=== PATIENT | female | born 1945 | race Caucasian/White ===

== ENCOUNTER 2017-02-10 18:45 | Emergency (ER) | payer MEDICARE, BC ==
[2017-02-10 19:09] VITALS: TEMP 99.2; O2SAT 98
[2017-02-10] MEDS ORDERED: LORAZEPAM 0.5 MG TAB PO ONE (19:47)
[2017-02-10] MEDS ORDERED: LORAZEPAM 0.5 MG TAB ONE (19:52)
[2017-02-10 20:02] VITALS: BP 151/83; PULSE 87; RESP 15
== END 2017-02-10 20:03 | disposition home or self-care (01) | DRG 310 ==
LOC: ED 18:45
DX: R00.2 Palpitations (principal); F41.9 Anxiety disorder, unspecified
CPT/HCPCS: 99283; 99284